=== PATIENT | male | born 1960 | race Asian ===

== ENCOUNTER 2020-04-06 16:10 | Emergency (ER) | payer OTHER ==
[~2020-04-06] VITALS: Ht 167.6 cm; Wt 70.3 kg
[2020-04-06 16:10] VITALS: BP 119/88; TEMP 98.3
[~2020-04-06 16:10] MED LIST: AMLO2.5T PO; BAYER ASPIRIN E81 MG PO; BENZ1TAB43 PO; BISACODYL LAXAT10 MG RE; CELEXA20 MG PO; DIVA500T2 PO; DONE5TAB PO; FLEET ENEMA RE; GUAI200S10 PO; GUIATUSS100 MG/5 M PO; HALO10TA5 PO; HALO5INJ3 IM; HYDR5TAB9 PO; IMODIUM A-D PO; LEXAPRO10 MG PO; LIPITOR40 MG PO; LISI20TA11 PO; MAPAP325 MG PO; METO50TA27 PO; METO50TA63 PO; NAMENDA10 MG PO; OMEPRAZOLE20 M1 PO; SEROQUEL25 MG PO; TRAM50TA PO; ZIPR20IN IM
[2020-04-06 16:34] LABS: PLATELET COUNT 124 K/uL (142-355)
[2020-04-06] MEDS ORDERED: AMLODIPINE BESYLATE PO (21:13)
[2020-04-06] MEDS ORDERED: ASPIRIN 81 LOW81 MG PO (21:13)
[2020-04-06] MEDS ORDERED: KP FOLIC ACID1 MG PO (21:15)
[2020-04-06] MEDS ORDERED: LISI20TA11 PO (21:16)
[2020-04-06] MEDS ORDERED: OMEP40CA PO (21:16)
[2020-04-06] MEDS ORDERED: SENNA8.6 MG PO (21:17)
[2020-04-06] MEDS ORDERED: BENZ1TAB43 PO (21:18)
[2020-04-06] MEDS ORDERED: FERROUS SULF325 MG PO (21:20)
[2020-04-06] MEDS ORDERED: NAMENDA10 MG PO (21:21)
[2020-04-06] MEDS ORDERED: METO50TA27 PO (21:22)
[2020-04-06] MEDS ORDERED: ARTIFICIAL TEAR1.4 % OPTH (21:23)
[2020-04-06] MEDS ORDERED: LIPITOR40 MG PO (21:24)
[2020-04-06] MEDS ORDERED: LIPITOR20 MG PO (21:25)
[2020-04-06] MEDS ORDERED: DIVALPROEX500 M1 PO (21:26)
[2020-04-06] MEDS ORDERED: DONE5TAB PO (21:27)
[2020-04-06] MEDS ORDERED: LEXAPRO10 MG PO (21:27)
[2020-04-06] MEDS ORDERED: HALO2CON2 PO (21:29)
[2020-04-06] MEDS ORDERED: BISACODYL LAXAT10 MG RE (21:31)
[2020-04-06] MEDS ORDERED: BISACODYL5 M1 PO (21:32)
[2020-04-06] MEDS ORDERED: TYLENOL325 MG PO (21:33)
[2020-04-06] MEDS ORDERED: GERI-LANTA PO (21:34)
[2020-04-06] MEDS ORDERED: HYDR5TAB9 PO (21:36)
[2020-04-06] MEDS ORDERED: ROBAFEN100 MG/5 M PO (21:37)
[2020-04-06] MEDS ORDERED: DIPH12.521 PO (21:40)
[2020-04-06] MEDS ORDERED: ROBAFEN DM1 M1 PO (21:41)
[2020-04-06] MEDS ORDERED: FLEET ENEMA RE (21:44)
[2020-04-06] MEDS ORDERED: OXYGEN NAS (21:47)
[2020-04-06] MEDS ORDERED: TRICOR48 MG PO (22:01)
== END 2020-04-06 18:45 | disposition still patient (30) ==
LOC: ED 16:10
PROVIDERS: General Practice
DX: U07.1 COVID-19 (principal); F03.91 Unspecified dementia, unspecified severity, with behavioral disturbance; R94.31 Abnormal electrocardiogram [ECG] [EKG]; Z04.6 Encounter for general psychiatric examination, requested by authority
CPT/HCPCS: 80053; 81000; 83735; 84484; 85027; 87635; 93005; 99283; U00003

== ENCOUNTER 2020-04-27 17:01 | Emergency (ER) | payer OTHER ==
[~2020-04-27] VITALS: Ht 165.1 cm; Wt 75.3 kg
[2020-04-27 17:01] VITALS: BP 140/78; TEMP 99.1
[~2020-04-27 17:01] MED LIST changes: +AMLODIPINE BESYLATE PO; +ARTIFICIAL TEAR1.4 % OPTH; +ASPIRIN 81 LOW81 MG PO; +BISACODYL5 M1 PO; +DIPH12.521 PO; +DIVALPROEX500 M1 PO; +DIVALPROEX500 MG PO; +ESCI10TA PO; +FERROUS SULF325 MG PO; +GERI-LANTA PO; +HALO2CON2 PO; +KP FOLIC ACID1 MG PO; +LIPITOR20 MG PO; +OLANZAPINE5 MG PO; +OMEP40CA PO; +OXYGEN NAS; +ROBAFEN DM1 M1 PO; +ROBAFEN100 MG/5 M PO; +SENNA8.6 MG PO; +TRICOR48 MG PO; +TYLENOL325 MG PO
[2020-04-27 17:22] LABS: PLATELET COUNT 110 K/uL (142-355)
[2020-05-04] MEDS ORDERED: DIVALPROEX500 MG PO (09:09)
[2020-05-04] MEDS ORDERED: ESCI10TA PO (09:10)
[2020-05-04] MEDS ORDERED: OLANZAPINE5 MG PO (09:10)
[2020-05-04] MEDS ORDERED: OLANZAPINE10 MG PO (09:11)
== END 2020-04-27 19:15 | disposition other institution (70) ==
LOC: ED 17:05
PROVIDERS: Family Medicine
DX: R45.1 Restlessness and agitation (principal); R46.89 Other symptoms and signs involving appearance and behavior; Z11.59 Encounter for screening for other viral diseases; Z04.6 Encounter for general psychiatric examination, requested by authority
CPT/HCPCS: 80053; 81000; 85027; 87635; 93005; 99283; U0003